=== PATIENT | female | born 1960 | race Caucasian/White ===

== ENCOUNTER 2016-10-19 18:36 | Emergency (ER) | payer OTHER ==
[~2016-10-19] VITALS: Ht 170.2 cm; Wt 73.9 kg
[2016-10-19 19:07] LABS: ABSOLUTE BASOPHIL COUNT 0 /CUMM (0.0-0.2); ABSOLUTE EOSINOPHIL COUNT 0.1 /CUMM (0.0-0.7); ABSOLUTE GRANULOCYTE CT 3.5 /CUMM (1.4-6.5); ABSOLUTE LYMPH COUNT 1.3 /CUMM (1.2-3.4); ABSOLUTE MONOCYTE COUNT 0.5 /CUMM (0.10-0.60); BASOPHIL % 0.8 % (0.0-2.0); GRANULOCYTE % 64.1 % (42.2-75.2); HEMATOCRIT 36.9 % (37-47); MEAN CORPUSCULAR HGB 29.9 PG (27.0-31.0); MEAN CORPUSCULAR HGB CONC 33.6 G/DL (33.0-37.0); MEAN CORPUSCULAR VOLUME 89.2 FL (81.0-99.0); MEAN PLATELET VOLUME 8.8 FL (7.4-10.4); PLATELET COUNT 187 /CUMM (130-400); RBC DISTRIBUTION WIDTH 13.8 % (11.5-14.5); RED BLOOD CELL CT 4.14 /CUMM (4.20-5.40); WHITE BLOOD CELL COUNT 5.4 /CUMM (4.8-10.8)
--- NOTE | 2016-10-19 19:28 | ED CARDIAC/CP/PALPITATIONS ---
History of Present Illness General Chief Complaint: Chest Pain Stated Complaint: CP Source: patient, family, old records Exam Limitations: no limitations Vital Signs & Intake/Output Vital Signs & Intake/Output Vital Signs Date Time Temp Pulse Resp B/P B/P Pulse O2 O2 Flow FiO2 Mean Ox Delivery Rate 10/19 2115 66 16 123/73 98 Room Air 10/19 1940 97 Room Air 10/19 1847 97.3 70 16 137/86 98 Room Air Allergies Coded Allergies: hydrocodone (From VICODIN) (Severe, ITCHING 09/01/15) adhesive (Intermediate, ITCHING 09/01/15) adhesive tape (PER PT OK WITH PAPER TAPE 10/19/16) Reconcile Medications Aloe Vera (Unknown Strength) CAPSULE (Unknown Dose) PO DAILY SUPPLEMENT ( Reported) Alprazolam 0.5 MG TABLET 1 TAB PO QPM RLS (Reported) Cholecalciferol (Vitamin D3) (Vitamin D) (Unknown Strength) CAPSULE (Unknown Dose) PO DAILY SUPPLEMENT (Reported) Multivitamin (Multi-Day Vitamins) (Unknown Strength) TABLET (Unknown Dose) PO DAILY SUPPLEMENT (Reported) Turmeric Root Extract (Turmeric) (Unknown Strength) CAPSULE (Unknown Dose) PO DAILY SUPPLEMENT (Reported) Triage Note: TRIAGE: STATES FOR 2-3 DAYS, "MY HEARTBEAT FEELS ERRATIC" AND ENDORSES A FLUTTERING SENSATION. DENIES MITIGATING FACTORS. DENIES PAIN, REPORTS TIGHTNESS IN CHEST. DENIES SOB/DIAPHORESIS. NORMAL SINUS RATE 60'S ON EKG. L ARM LIMITED EXT FOR LUMPECTOMY FOR BREAST CA AT [facility] [place]. PMD FETTE. DENIES HEADACHE AT PRESENT BUT HAS BEEN WAKING UP WITH HEADACHES. ENDORSES LETHARGY X WEEKS. Triage Nurses Notes Reviewed? yes HPI: Since Wednesday patient has just been feeling a weird sensation in her chest. Patient states that he feels like somebody is squeezing her heart and not allowing it to beat completely. She denies any shortness of breath or dyspnea on exertion. There is no orthopnea. There are no aggravating or mitigating factors. Patient states that it does not hurt and she is unable to rate the pain on any type of pain scale. Patient states it is just there all the time. Patient became concerned and comes into the emergency department for evaluation. Past History Travel History Traveled to [place] past 21 day No Medical History Any Pertinent Medical History? see below for history Neurological: RESTLESS LEGS EENT: NONE Cardiovascular: NONE Respiratory: NONE Gastrointestinal: biliary duct narrowing? Hepatic: NONE Renal: NONE Musculoskeletal: NONE Psychiatric: NONE Endocrine: NONE Blood Disorders: NONE Cancer(s): BREAST CA TACK CLEANER/Reproductive: HYSTERCTOMY Surgical History Surgical History: MASTECTOMY, BREAST RECONSTRUCTION WITH LN RECONSTRUCTION Psychosocial History Who do you live with Spouse What is your primary language Iranian Tobacco Use: Never used ETOH Use: occasional use Illicit Drug Use: denies illicit drug use Family History Hx Contributory? No Review of Systems Review of Systems Constitutional: Reports: no symptoms. EENTM: Reports: no symptoms. Respiratory: Reports: see HPI, short of breath. Cardiovascular: Reports: see HPI, chest pain, palpitations. GI: Reports: no symptoms. Genitourinary: Reports: no symptoms. Musculoskeletal: Reports: no symptoms. Skin: Reports: no symptoms. Neurological/Psychological: Reports: no symptoms. Hematologic/Endocrine: Reports: no symptoms. Immunologic/Allergic: Reports: no symptoms. All Other Systems: Reviewed and Negative Physical Exam Physical Exam General Appearance: well developed/nourished, alert, awake, anxious, mild distress Head: atraumatic, normal appearance Eyes: Bilateral: PERRL, EOMI. Ears, Nose, Throat: normal pharynx, hearing grossly normal Neck: normal inspection, supple, full range of motion, NO JVD Respiratory: normal breath sounds, chest non-tender, no respiratory distress, lungs clear Cardiovascular: regular rate/rhythm, normal peripheral pulses Gastrointestinal: normal bowel sounds, soft, non-tender, no organomegaly Back: normal inspection, normal range of motion Extremities: normal inspection, normal capillary refill, normal range of motion, no edema Neurologic/Psych: no motor/sensory deficits, awake, alert, oriented x 3, normal gait, normal mood/affect Skin: intact, normal color, warm/dry Lymphatic: no anterior cervical britney Core Measures ACS in differential dx? Yes Severe Sepsis Present: No Septic Shock Present: No Progress Differential Diagnosis: AMI, atrial fibrillation, hyperthyroid, myocarditis, pericarditis, pneumonia, pneumothorax, PSVT, pulmonary embolism, PVCs/PACs Plan of Care: Orders Procedure Date/time Status Telemetry/Trouble Dispatcher 10/20 1927 Active Add-on Test (ER Only) 10/19 1917 Active THYROID STIMULATING HORMONE 10/19 1858 Complete MAGNESIUM 10/19 1858 Complete TROPONIN LEVEL 10/20 1851 Complete COMPREHENSIVE METABOLIC PANEL 10/20 1851 Complete CBC WITHOUT DIFFERENTIAL 10/20 1851 Complete EKG 10/19 1836 Active Laboratory Tests 10/19/161858: Anion Gap 7, Estimated GFR > 60, BUN/Creatinine Ratio 18.8, Glucose 96, Calcium 9.4, Magnesium 2.3, Total Bilirubin 0.5, AST 18, ALT 33, Alkaline Phosphatase 71 , Troponin I < 0.01, Total Protein 6.9, Albumin 4.3, Globulin 2.6, Albumin/ Globulin Ratio 1.7, TSH 3.280, CBC w Diff NO MAN DIFF REQ, RBC 4.14 L, MCV 89.2 , MCH 29.9, RDW 13.8, MPV 8.8, Gran % 64.1, Lymphocytes % 24.2, Monocytes % 8.9, Eosinophils % 2.0, Basophils % 0.8, Absolute Granulocytes 3.5, Absolute Lymphocytes 1.3, Absolute Monocytes 0.5, Absolute Eosinophils 0.1, Absolute Basophils 0, PUBS MCHC 33.6 Diagnostic Imaging: Viewed by Me: CT Scan. Discussed w/RAD: CT Scan. Radiology Impression: PATIENT: ALF MONTALVO PRESENT AGE: 56 PATIENT ACCOUNT NO: [id number] : 61 LOCATION: [facility] ORDERING PHYSICIAN: EMILY GOLDEN MD SERVICE DATE: 10/19/16 EXAM TYPE: CAT - CTA CHEST-PULMONARY EMBOLISM EXAMINATION: CT ANGIOGRAM OF THE CHEST WITH AND WITHOUT CONTRAST (CT PULMONARY ANGIOGRAM FOR PE) CLINICAL INFORMATION: Chest pain and dyspnea. History of breast cancer. COMPARISON: CTA chest 09/02/2014. CTA chest 01/17/2012. TECHNIQUE: Prior to contrast administration, noncontrast localization images were obtained. Subsequently, multidetector volumetric imaging was performed from the thoracic inlet to below the diaphragms following the administration of 95 mL Optiray 320 intravenous contrast. No contrast reaction reported. Sagittal, coronal, and MIP oblique sagittal reformatted images were obtained on the CT workstation, uploaded to PACS, and reviewed. Total exam dose-length product 282 mGy-cm. FINDINGS: QUALITY OF STUDY/CONTRAST BOLUS: Adequate contrast opacification of the pulmonary arterial vasculature. PULMONARY ARTERIES: No evidence of pulmonary embolism to the level of the subsegmental pulmonary arteries. THORACIC AORTA: No aneurysm or dissection. LUNG : Evaluation of the lung parenchyma demonstrates minimal dependent bibasilar atelectasis. Of note, there is an 8 mm pulmonary nodule within the right lower lobe (series 3, image 43), not significantly changed relative to the prior examination. No focal airspace consolidation is identified. The central airways are patent, without endobronchial obstructing lesions. PLEURA: No pleural effusion or pneumothorax. MEDIASTINUM: Normal heart size. No pericardial effusion. No hilar or mediastinal lymphadenopathy. No evidence of septal bowing or right heart strain. CHEST WALL/AXILLA: No axillary or internal mammary lymphadenopathy. OSSEOUS STRUCTURES: No acute or suspicious osseous abnormality. UPPER ABDOMEN: No acute findings within the upper abdomen. No reflux of contrast into the hepatic veins to suggest elevated right heart pressures. IMPRESSION: 1. Adequate contrast opacification of the pulmonary arterial vasculature, without evidence of pulmonary embolism. 2. An 8 mm pulmonary nodule within the right lower lobe, not significantly changed in size relative to a prior exam dating back to 01/17/2012. VTE: Negative. DICTATED BY: JOSEFINA ENG MD DATE/TIME DICTATED:10/19/162058 CASHIER ASSISTANT:ANTHONY DATE/TIME TRANSCRIBED:2058 CONFIDENTIAL, DO NOT COPY WITHOUT APPROPRIATE AUTHORIZATION. < Electronically signed in Other Vendor System> SIGNED BY: JOSEFINA ENG MD 10/19/162127 Initial ED EKG: NSR, no ST T wave changes Prior EKG: unchanged Rhythm Strip: normal sinus rhythm Departure Departure Disposition: HOME OR SELF CARE Condition: Stable Clinical Impression Primary Impression: Chest pain, unspecified Qualifiers: Chest pain type: other chest pain Qualified Code: R07.89 - Other chest pain Referrals: EVA WARD,DORYS Rubalcava (PCP/Family) Additional Instructions: FOLLOW UP WITH YOUR SOFTWARE COMPUTER SPECIALIST RETURN IF SYMPTOMS WORSEN OR FOR ANY CONCERNS Departure Forms: Customer Survey General Discharge Information Critical Care Note Critical Care Note Critical Care Time: non-applicable
[2016-10-19] MEDS ORDERED: VITAMIN D2000 UNIT PO (20:11)
[2016-10-19] MEDS ORDERED: ALPRAZOLAM0.5 M4 PO (20:11)
[2016-10-19] MEDS ORDERED: ALOE VERA5000 MG PO (20:12)
[2016-10-19] MEDS ORDERED: TURMERIC500 M1 PO (20:12)
[2016-10-19] MEDS ORDERED: MULTI-DAY VITA1 EACH PO (20:13)
[2016-10-19 21:15] VITALS: BP 123/73
--- NOTE | 2016-10-19 21:28 | CT SCAN REPORT ---
EXAMINATION: CT ANGIOGRAM OF THE CHEST WITH AND WITHOUT CONTRAST (CT PULMONARY ANGIOGRAM FOR PE) CLINICAL INFORMATION: Chest pain and dyspnea. History of breast cancer. COMPARISON: CTA chest 09/02/2014. CTA chest 01/17/2012. TECHNIQUE: Prior to contrast administration, noncontrast localization images were obtained. Subsequently, multidetector volumetric imaging was performed from the thoracic inlet to below the diaphragms following the administration of 95 mL Optiray 320 intravenous contrast. No contrast reaction reported. Sagittal, coronal, and MIP oblique sagittal reformatted images were obtained on the CT workstation, uploaded to PACS, and reviewed. Total exam dose-length product 282 mGy-cm. FINDINGS: QUALITY OF STUDY/CONTRAST BOLUS: Adequate contrast opacification of the pulmonary arterial vasculature. PULMONARY ARTERIES: No evidence of pulmonary embolism to the level of the subsegmental pulmonary arteries. THORACIC AORTA: No aneurysm or dissection. LUNG: Evaluation of the lung parenchyma demonstrates minimal dependent bibasilar atelectasis. Of note, there is an 8 mm pulmonary nodule within the right lower lobe (series 3, image 43), not significantly changed relative to the prior examination. No focal airspace consolidation is identified. The central airways are patent, without endobronchial obstructing lesions. PLEURA: No pleural effusion or pneumothorax. MEDIASTINUM: Normal heart size. No pericardial effusion. No hilar or mediastinal lymphadenopathy. No evidence of septal bowing or right heart strain. CHEST WALL/AXILLA: No axillary or internal mammary lymphadenopathy. OSSEOUS STRUCTURES: No acute or suspicious osseous abnormality. UPPER ABDOMEN: No acute findings within the upper abdomen. No reflux of contrast into the hepatic veins to suggest elevated right heart pressures. IMPRESSION: 1. Adequate contrast opacification of the pulmonary arterial vasculature, without evidence of pulmonary embolism. 2. An 8 mm pulmonary nodule within the right lower lobe, not significantly changed in size relative to a prior exam dating back to 01/17/2012. VTE: Negative.
== END 2016-10-19 21:56 ==
LOC: ERH 18:36
PROVIDERS: Emergency Medicine
DX: R07.9 Chest pain, unspecified (principal)
CPT/HCPCS: 93005; 93010